=== PATIENT | male | born 1970 | race Caucasian/White ===

== ENCOUNTER 2017-07-09 14:00 | Emergency (ER) | payer MEDICAID ==
--- NOTE | 2017-07-09 14:10 | EDPHY ---
H & P Source: Patient, EMS Exam Limitations: Clinical condition, Intoxication - Family History Significant Family History: No pertinent family hx - Social History Smoking Status: Never smoked Time Seen by Provider: 07/09/17 14:09 HPI/ROS: CHIEF COMPLAINT: Unresponsive, presumed intoxication HISTORY OF PRESENT ILLNESS: The patient is brought in by paramedics unresponsive from presumed alcohol intoxication. The patient reportedly was found lying on the sidewalk unable to ambulate. The patient is unable to provide any history in the emergency department as he is quite sedated. We have no prior records on the patient. He is noted to have some minor head trauma above his right eye of undetermined age. REVIEW OF SYSTEMS: A comprehensive 10 point review unobtainable secondary to altered mental status (Keyon Rubin) - Physical Exam Exam: General Appearance: Disheveled male, no acute distress, responds to painful stimuli Eyes: Pupils equal and round no pallor or injection ENT, Mouth: Mucous membranes moist Respiratory: There are no retractions, lungs are clear to auscultation Cardiovascular: Regular rate and rhythm Gastrointestinal: Abdomen is soft and nontender, no masses, bowel sounds normal Neurological: Withdrawals to pain all 4 extremities Skin: Warm and dry, no rashes Musculoskeletal: Neck is supple nontender Extremities: symmetrical, full range of motion (Keyon Rubin) Constitutional: Initial Vital Signs Temperature (C) 36.4 C 07/09/17 14:47 Heart Rate 71 07/09/17 14:47 Respiratory Rate 16 07/09/17 14:47 Blood Pressure 138/98 H 07/09/17 14:47 O2 Sat (%) 94 07/09/17 14:47 O2 Delivery Mode Nasal Cannula O2 (L/minute) 4 Medical Decision Making - Diagnostics Imaging Results: Imaging Impressions Cervical Spine CT 07/09/17 14:31 Impression: 1. No evidence for acute intracranial abnormality. 2. Mucous retention cysts in both maxillary sinuses. CT Cervical Spine Without Contrast History: Trauma. Found down. Technique: 1.5-mm helical images were obtained of the cervical spine without contrast. Multiplanar reformation was performed. Radiation dose reduction technique was utilized. Findings: No evidence for fracture or subluxation. Mild disk height narrowing C5 -C6 and mild osteophytosis. No evidence for prevertebral soft tissue swelling. C2-C3 level unremarkable. C3-C4 level demonstrates a small parasagittal protrusion mildly effacing the anterior thecal sac. Mild uncovertebral joint hypertrophy is seen bilaterally, causing mild bilateral neural foraminal narrowing. C4-C5 level demonstrates a small central protrusion mildly effacing the anterior thecal sac. C5-C6 level demonstrates a right posterolateral protrusion, causing moderate effacement of the anterior thecal sac and mild to moderate right lateral recess and medial right neural foraminal narrowing. Mild uncovertebral joint hypertrophy is seen bilaterally, causing mild bilateral neural foraminal narrowing. C6-C7 level demonstrates a mild broad-based annular bulge mildly effacing the anterior thecal sac. Mild uncovertebral joint hypertrophy and facet arthropathy is seen bilaterally, causing mild bilateral neural foraminal narrowing. C7-T1 level demonstrates mild facet arthropathy, causing no significant encroachment. Impression: No evidence for acute fracture. 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 Results called and discussed with Keyon Rubin MD on July 09, 2017 at [address] 07/09/17 14:31 Impression: 1. No evidence for acute intracranial abnormality. 2. Mucous retention cysts in both maxillary sinuses. CT Cervical Spine Without Contrast History: Trauma. Found down. Technique: 1.5-mm helical images were obtained of the cervical spine without contrast. Multiplanar reformation was performed. Radiation dose reduction technique was utilized. Findings: No evidence for fracture or subluxation. Mild disk height narrowing C5 -C6 and mild osteophytosis. No evidence for prevertebral soft tissue swelling. C2-C3 level unremarkable. C3-C4 level demonstrates a small parasagittal protrusion mildly effacing the anterior thecal sac. Mild uncovertebral joint hypertrophy is seen bilaterally, causing mild bilateral neural foraminal narrowing. C4-C5 level demonstrates a small central protrusion mildly effacing the anterior thecal sac. C5-C6 level demonstrates a right posterolateral protrusion, causing moderate effacement of the anterior thecal sac and mild to moderate right lateral recess and medial right neural foraminal narrowing. Mild uncovertebral joint hypertrophy is seen bilaterally, causing mild bilateral neural foraminal narrowing. C6-C7 level demonstrates a mild broad-based annular bulge mildly effacing the anterior thecal sac. Mild uncovertebral joint hypertrophy and facet arthropathy is seen bilaterally, causing mild bilateral neural foraminal narrowing. C7-T1 level demonstrates mild facet arthropathy, causing no significant encroachment. Impression: No evidence for acute fracture. 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 Results called and discussed with Keyon Rubin MD on July 09, 2017 at 1512 hours. ED Course/Re-evaluation: The patient presents the ED with presumed intoxication. He is unable to provide much history secondary to his clinical state. The patient does have evidence of head trauma of indeterminate age. A CT scan of the head and cervical spine were ordered. The patient also had laboratory testing ordered. The patient will be turned over to Dr. Luque at shift change pending reassessment, follow up on blood tests and CT imaging. (Keyon Rubin) I saw the patient at 3:40 p.m.. Patient is somewhat arousable with painful stimuli. He does not speak. His vital signs are stable. CT head and cervical spine are reported as normal. Serial evaluations and patient Is stable Re-evaluation 9:10 p.m.. Patient is now awake and conversational. He agrees to go to the [facility]. (Ananth Luque) Differential Diagnosis: Differential diagnosis considered includes intracranial hemorrhage, skull fracture, dehydration, hypoglycemia, alcohol intoxication (Keyon Rubin) - Data Points Laboratory Results: Laboratory Results 07/09/17 14:37 07/09/17 14:37 07/09/17 07/09/17 14:37 14:37 WBC 2.86 10^3/uL L 10^3/uL (3.80-9.50) RBC 4.22 10^6/uL L 10^6/uL (4.40-6.38) Hgb 14.5 g/dL g/dL (13.7-17.5) Hct 42.2 % % (40.0-51.0) MCV 100.0 fL H fL (81.5-99.8) MCH 34.4 pg H pg (27.9-34.1) MCHC 34.4 g/dL g/dL (32.4-36.7) RDW 17.0 % H % (11.5-15.2) Plt Count 193 10^3/uL 10^3/uL (150-400) MPV 9.3 fL fL (8.7-11.7) Neut % (Auto) 38.9 % L % (39.3-74.2) Lymph % (Auto) 45.1 % H % (15.0-45.0) [place] % (Auto) 12.9 % % (4.5-13.0) Eos % (Auto) 2.1 % % (0.6-7.6) Baso % (Auto) 0.7 % % (0.3-1.7) Nucleat RBC Rel Count 0.0 % % (0.0-0.2) Absolute Neuts (auto) 1.11 10^3/uL L 10^3/uL (1.70-6.50) Absolute Lymphs (auto) 1.29 10^3/uL 10^3/uL (1.00-3.00) Absolute Monos (auto) 0.37 10^3/uL 10^3/uL (0.30-0.80) Absolute Eos (auto) 0.06 10^3/uL 10^3/uL (0.03-0.40) Absolute Basos (auto) 0.02 10^3/uL 10^3/uL (0.02-0.10) Absolute Nucleated RBC 0.00 10^3/uL 10^3/uL (0-0.01) Immature Gran % 0.3 % % (0.0-1.1) Immature Gran # 0.01 10^3/uL 10^3/uL (0.00-0.10) Sodium 152 mEq/L H mEq/L (135-145) Potassium 3.4 mEq/L mEq/L (3.3-5.0) Chloride 109 mEq/L mEq/L (97-110) Carbon Dioxide 21 mEq/l L mEq/l (22-31) Anion Gap 22 mEq/L H mEq/L (8-16) BUN 5 mg/dL L mg/dL (7-23) Creatinine 0.6 mg/dL L mg/dL (0.7-1.3) Estimated GFR > 60 Glucose 88 mg/dL mg/dL (70-100) Calcium 8.6 mg/dL mg/dL (8.5-10.4) Ethyl Alcohol 531 mg/dL H* mg/dL (0-10) Departure - Departure Disposition: Home, Routine, Self-Care Clinical Impression: Alcoholic intoxication Qualifiers: Complication of substance-induced condition: uncomplicated Qualified Code(s): F10.920 - Alcohol use, unspecified with intoxication, uncomplicated Condition: Good Instructions: Alcohol Intoxication (ED) Additional Instructions: Return for worsening symptoms. Referrals: Patient,NotPresent [Primary Care Provider] - As per Instructions
[2017-07-09 15:10] LABS: PLATELET COUNT 193 10^3/uL (150-400)
[2017-07-09 21:28] VITALS: BP 104/72
== END 2017-07-09 21:51 | disposition home or self-care (01) ==
LOC: EDBD 14:00
DX: F10.920 Alcohol use, unspecified with intoxication, uncomplicated (principal)
CPT/HCPCS: G0480